=== PATIENT | female | born 1965 | race Two or more races ===

== ENCOUNTER 2023-04-25 11:27 | Outpatient (CLI) | payer OTHER | END 2023-04-25 11:30 | disposition home or self-care (01) | LOC: SONOGRAMA 11:27 | PROVIDERS: ATTEND Pathology Anatomic Pathology & Clinical Pathology | DX: D44.0 Neoplasm of uncertain behavior of thyroid gland (principal); E04.2 Nontoxic multinodular goiter ==

== ENCOUNTER 2023-06-13 09:40 | Outpatient (CLI) | payer OTHER | END 2023-06-13 10:00 | disposition home or self-care (01) | LOC: SONOGRAMA 09:40 | PROVIDERS: ATTEND Pathology Anatomic Pathology & Clinical Pathology | DX: D44.0 Neoplasm of uncertain behavior of thyroid gland (principal); E04.2 Nontoxic multinodular goiter ==

== ENCOUNTER 2024-05-14 10:41 | Outpatient (CLI) | payer OTHER | END 2024-05-14 10:44 | disposition home or self-care (01) | LOC: SONOGRAMA 10:41 | PROVIDERS: ATTEND Pathology Anatomic Pathology & Clinical Pathology | DX: D44.0 Neoplasm of uncertain behavior of thyroid gland (principal); E04.2 Nontoxic multinodular goiter ==